=== PATIENT | male | born 1955 | race Caucasian/White ===

== ENCOUNTER → 2021-10-25 | Day surgery (SDC) | payer MEDICARE, OTHER ==
[~2021-10-25] VITALS: Ht 177.8 cm; Wt 87.1 kg
[~2021-10-25] MED LIST: ASCORBIC ACID500 MG PO; ASPIRIN EC81 MG PO; CYMBALTA 30MG C30 MG PO; DILTIAZEM 24HR120 M1 PO; EZETIMIBE10 MG PO; FENOFIBRATE160 MG PO; FOLIXAPURE5000 UNIT PO; LIPITOR20 M1 PO; MOTRIN600 MG PO; NORCO 5-325 TA1 EACH PO; NORVASC5 MG PO; PRINIVIL20 MG PO; PROBIOTIC1 EACH PO; PROTONIX 40MG T40 MG PO; RED YEAST RICE600 MG PO; VITAMIN B-121000 MC1 PO; ZINC50 M2 PO
== END | disposition home or self-care (01) ==
LOC: FAS 10-18 13:15
DX: D12.0 Benign neoplasm of cecum (principal); D13.2 Benign neoplasm of duodenum; K52.9 Noninfective gastroenteritis and colitis, unspecified; K21.9 Gastro-esophageal reflux disease without esophagitis; K31.9 Disease of stomach and duodenum, unspecified; K29.60 Other gastritis without bleeding; G89.29 Other chronic pain; I10 Essential (primary) hypertension; E78.5 Hyperlipidemia, unspecified; M19.019 Primary osteoarthritis, unspecified shoulder; E78.00 Pure hypercholesterolemia, unspecified; Z79.82 Long term (current) use of aspirin; Z79.899 Other long term (current) drug therapy; Z72.89 Other problems related to lifestyle; Z87.891 Personal history of nicotine dependence
CPT/HCPCS: J2704; J7120